=== PATIENT | male | born 1975 ===

== ENCOUNTER 2017-11-11 19:31 | Emergency (ER) | payer MEDICAID ==
[2017-11-11 20:01] VITALS: BP 107/68; PULSE 77; TEMP 98.2; O2SAT 100
--- NOTE | 2017-11-11 20:29 | C.PDOC ---
History Of Present Illness 42 yo male come in for evaluation of left elbow pain, swelling developed for past 2 months " after had fall injury". Pt sts, " today decided to check it out ". Otherwise, pt denies fever, chills, denies obvious deformity, weakness, sensory or vascular deficits to Left arm. Ambulate to Ed for evaluation, not in any apparent distress. Time Seen by Provider: 11/11/17 19:49 Chief Complaint (Nursing): Upper Extremity Problem/Injury History Per: Patient Onset/Duration Of Symptoms: Gradual Past Medical History Reviewed: Historical Data, Nursing Documentation, Vital Signs Vital Signs: Last Vital Signs Temp 98.2 F 11/11/17 19:57 Pulse 77 11/11/17 19:57 Resp 18 11/11/17 19:57 BP 107/68 11/11/17 19:57 Pulse Ox 100 11/11/17 20:31 - Medical History PMH: Anxiety, Asthma, Bronchitis, Depression Denies: Chronic Kidney Disease Family History: States: No Known Family Hx - Social History Hx Tobacco Use: Yes Hx Alcohol Use: No Hx Substance Use: No - Immunization History Hx Influenza Vaccination: Yes Review Of Systems Except As Marked, All Systems Reviewed And Found Negative. Constitutional: Negative for: Fever, Chills ENT: Negative for: Nose Discharge, Throat Pain Cardiovascular: Negative for: Chest Pain, Palpitations, Edema, Light Headedness Respiratory: Negative for: Shortness of Breath Musculoskeletal: Positive for: Other (Left elbow pain) Skin: Negative for: Bruising Neurological: Negative for: Weakness, Numbness, Altered Mental Status, Headache , Dizziness Physical Exam - Physical Exam Appears: Well, Non-toxic, No Acute Distress Skin: Normal Color, Warm, No Rash Head: Normacephalic Eye(s): bilateral: PERRL Extremity: Normal ROM (FAROM of Left elbow, no neurovascular deficits), Tenderness (left elbow lateral aspect), Capillary Refill (less than 2sec to left hand), No Deformity, Swelling (diffuse over left elbow more over lateral aspect) Neurological/Psych: Oriented x3, Normal Speech, Normal Motor, Normal Sensation, Normal Reflexes ED Course And Treatment O2 Sat by Pulse Oximetry: 100 Pulse Ox Interpretation: Normal - Other Rad Left elbow X-Ray: Interpreted by Me, Viewed By Me Interpretation: (+) old elbow fx. Progress Note: On re-eval, pt is afebrile, hemodynamicaly stable. LUE: mild edema, scant erythema and tenderness lateral aspect left elbow. No palpable deformity, FAROM, no neurovascular deficits. Imaging of left elbow review (+) old elbow fx. Pt advised and ref. to f/u with Ortho in 2-3 days for re-eval. eturn if any new changes. Disposition Counseled Patient/Family Regarding: Studies Performed, Diagnosis, Need For Followup - Disposition Referrals: [facility] at [facility] [Outside] Chris Roman MD [Staff Provider] - Disposition: HOME/ ROUTINE Disposition Time: 20:31 Condition: STABLE Additional Instructions: Jorge Luis wrap to Left elbow Light duty to left elbow Follow up with Orthopedist in 2-3 days for re-evaluation and further treatment as need return to Ed if any worsening or new changes. Instructions: Olecranon Bursitis, Elbow Fracture (DC) Forms: [facility] ([employer]) - Clinical Impression Clinical Impression: Bursitis of elbow, Elbow fracture
[2017-11-11 21:47] VITALS: RESP 20
--- NOTE | 2017-11-12 10:08 | RAD ---
Left elbow three views History: Pain. Comparison: None available. Findings: Large 1.5 centimeter ossific density seen anterior to the distal humerus suggestive for a displaced fracture of the coronoid. Fracture fragment measures approximately 1 5 centimeters with anterior distraction measuring approximately 1 centimeter. Adjacent to this, there is an additional ossific/radiopaque density measuring approximately 4 millimeters which may represent an additional fracture fragment. Productive change along the posterior cortex of the distal humerus. Elbow joint effusion. 6 millimeter radiopaque density seen adjacent to the medial humeral condyle. This is of uncertain clinical etiology and may represent a fracture fragment. Few punctate radiopaque densities seen projecting lateral to the lateral humeral condyle, nonspecific. Clinical correlation. Impression: Large 1.5 centimeter ossific density seen anterior to the distal humerus suggestive for a displaced fracture of the coronoid. Fracture fragment measures approximately 1 5 centimeters with anterior distraction measuring approximately 1 centimeter. Adjacent to this, there is an additional ossific/radiopaque density measuring approximately 4 millimeters which may represent an additional fracture fragment. Productive change along the posterior cortex of the distal humerus. Elbow joint effusion. 6 millimeter radiopaque density seen adjacent to the medial humeral condyle. This is of uncertain clinical etiology and may represent a fracture fragment. Few punctate radiopaque densities seen projecting lateral to the lateral humeral condyle, nonspecific. Clinical correlation. Correlation with bony CT and/or MRI may be helpful for further evaluation if clinically indicated.
== END 2017-11-11 21:47 | disposition home or self-care (01) ==
LOC: C.ER 19:31
DX: S42.402A Unspecified fracture of lower end of left humerus, initial encounter for closed fracture (principal); W19.XXXA Unspecified fall, initial encounter; M70.22 Olecranon bursitis, left elbow

== ENCOUNTER 2018-11-15 14:56 | Emergency (ER) | payer MEDICAID, OTHER ==
--- NOTE | 2018-11-15 15:18 | C.PDOC ---
History Of Present Illness 43 year old male with a history of anxiety and depression presents to the emergency department with complaints of hearing voices and feeling anxious. states h/o of anxiety depression. in er in [place]. Patient denies fever, suicidal/homicidal ideation and other complaints. <Jairo Armendariz - Last Filed: 11/15/18 18:26> History Per: Patient History/Exam Limitations: no limitations Onset/Duration Of Symptoms: Hrs Current Symptoms Are (Timing): Still Present Suicide/Self Injury Attempted (Context): None Modifying Factor(s): None Associated Symptoms: Anxiety. denies: Suicidal Thoughts, Suicidal Plan <Jairo Armendariz - Last Filed: 11/15/18 18:26> <Griselda Marina - Last Filed: 11/15/18 20:21> Time Seen by Provider: 11/15/18 15:02 Chief Complaint (Nursing): Psychiatric Evaluation Past Medical History Reviewed: Historical Data, Nursing Documentation, Vital Signs Vital Signs: Last Vital Signs Temp 97.6 F 11/15/18 15:05 Pulse 77 11/15/18 15:05 Resp 18 11/15/18 15:05 BP 112/72 11/15/18 15:05 Pulse Ox 100 11/15/18 15:05 Primary Care Provider: Kaitlynn Jefferson - Medical History PMH: Anxiety, Asthma, Bronchitis, Depression Denies: Chronic Kidney Disease Surgical History: No Surg Hx Family History: States: No Known Family Hx - Social History Hx Tobacco Use: Yes Hx Alcohol Use: No Hx Substance Use: No - Immunization History Hx Influenza Vaccination: Yes <Jairo Armendariz - Last Filed: 11/15/18 18:26> Vital Signs: Last Vital Signs Temp 98.4 F 11/15/18 18:56 Pulse 77 11/15/18 18:56 Resp 16 11/15/18 18:56 BP 128/85 11/15/18 18:56 Pulse Ox 97 11/15/18 18:56 <Griselda Marina - Last Filed: 11/15/18 20:21> Review Of Systems Except As Marked, All Systems Reviewed And Found Negative. Constitutional: Negative for: Fever Cardiovascular: Negative for: Chest Pain Respiratory: Negative for: Cough, Shortness of Breath Gastrointestinal: Negative for: Nausea, Vomiting, Abdominal Pain, Diarrhea Genitourinary: Negative for: Dysuria Musculoskeletal: Negative for: Neck Pain Neurological: Negative for: Weakness, Numbness Psych: Positive for: Anxiety. Negative for: Suicidal ideation <Jairo Armendariz - Last Filed: 11/15/18 18:26> Physical Exam - Physical Exam Appears: Non-toxic, No Acute Distress Skin: Normal Color, Warm, Dry Head: Atraumatic, Normacephalic Eye(s): bilateral: Normal Inspection, PERRL, EOMI Nose: Normal Oral Mucosa: Moist Neck: Normal, Supple Chest: Symmetrical, No Tenderness Cardiovascular: Rhythm Regular, No Murmur Respiratory: Normal Breath Sounds, No Rales, No Rhonchi, No Wheezing Gastrointestinal/Abdominal: Soft, No Tenderness, No Guarding, No Rebound Extremity: Normal ROM, No Tenderness, Other (healed surgical scar to left shoulder) Neurological/Psych: Oriented x3, Normal Speech, Normal Cognition <KpjannJairo layton - Last Filed: 11/15/18 18:26> ED Course And Treatment - Laboratory Results Result Diagrams: 11/15/18 16:08 11/15/18 16:08 O2 Sat by Pulse Oximetry: 100 (RA) Pulse Ox Interpretation: Normal <Jairo Armendariz - Last Filed: 11/15/18 18:26> - Laboratory Results Result Diagrams: 11/15/18 16:08 11/15/18 16:08 Lab Results: Total Bilirubin 0.4 mg/dL (0.2-1.3) 11/15/18 16:08 AST 26 U/L (17-59) 11/15/18 16:08 ALT 18 U/L (21-72) L 11/15/18 16:08 Alkaline Phosphatase 85 U/L (38-126) 11/15/18 16:08 Total Protein 7.8 g/dL (6.3-8.3) 11/15/18 16:08 Albumin 4.5 g/dL (3.5-5.0) 11/15/18 16:08 Globulin 3.2 gm/dL (2.2-3.9) 11/15/18 16:08 Albumin/Globulin Ratio 1.4 (1.0-2.1) 11/15/18 16:08 Urine Color Yellow (YELLOW) 11/15/18 17:16 Urine Clarity Hazy (Clear) 11/15/18 17:16 Urine pH 5.0 (5.0-8.0) 11/15/18 17:16 Ur Specific [place] 1.021 (1.003-1.030) 11/15/18 17:16 Urine Protein Negative mg/dL (NEGATIVE) 11/15/18 17:16 Urine Glucose (UA) Normal mg/dL (Normal) 11/15/18 17:16 Urine Ketones Negative mg/dL (NEGATIVE) 11/15/18 17:16 Urine Blood Negative (NEGATIVE) 11/15/18 17:16 Urine Nitrate Negative (NEGATIVE) 11/15/18 17:16 Urine Bilirubin Negative (NEGATIVE) 11/15/18 17:16 Urine Urobilinogen 4.0 mg/dL (0.2-1.0) 11/15/18 17:16 Ur Leukocyte Esterase Neg Enzo/uL (Negative) 11/15/18 17:16 Urine WBC (Auto) 3 /hpf (0-5) 11/15/18 17:16 Urine RBC (Auto) 4 /hpf (0-3) H 11/15/18 17:16 Ur Squamous Epith Cells 1 /hpf (0-5) 11/15/18 17:16 Calcium Oxalate Crystal Mod /hpf (<OCC) H 11/15/18 17:16 ECG: Interpreted By Me, Viewed By Me ECG Rhythm: Sinus Rhythm ECG Interpretation: No Acute Changes Rate From EC <Griselda Marina - Last Filed: 11/15/18 20:21> Medical Decision Making Medical Decision Making: anxiety/dperession/ ?chizophrenia Plan: Chemistry CBC Urinalysis pending transfer to [place]. cxr ekg pending. endorsed to dr marina pending transfer. <Jairo Armendariz - Last Filed: 11/15/18 18:26> Medical Decision Making: Normal chest XR, read by me. Patient is medically cleared. Dr. Hayes accepted patient. Will transfer to [facility]. <Griselda Marina - Last Filed: 11/15/18 20:21> Disposition <Jairo Armendariz - Last Filed: 11/15/18 18:26> - Disposition Disposition Time: 19:31 <Griselda Marina - Last Filed: 11/15/18 20:21> - Disposition Condition: STABLE Forms: [facility] (Telugu) - Clinical Impression Clinical Impression: Schizophrenia - Scribe Statement The provider has reviewed the documentation as recorded by the Scribe (Ori Huertas) Provider Attestation: All medical record entries made by the Scribe were at my direction and personally dictated by me. I have reviewed the chart and agree that the record accurately reflects my personal performance of the history, physical exam, medical decision making, and the department course for this patient. I have also personally directed, reviewed, and agree with the discharge instructions and disposition. <Jairo Armendariz - Last Filed: 11/15/18 18:26>
[2018-11-15 16:16] LABS: BASO # 0.1 K/uL (0.0-0.2); BASO % 0.9 % (0.0-2.0); EOS # 0.2 K/uL (0.0-0.7); EOS % 2.5 % (0.0-4.0); HEMOGLOBIN 11.3 g/dL (12.0-18.0); LYMPH # 1.6 K/uL (1.0-4.3); MEAN CELL VOLUME 73.1 fL (80.0-94.0); MEAN CORPUSCULAR HEMOGLOBIN 23.6 pg (27.0-31.0); MEAN CORPUSCULAR HGB CONC 32.4 g/dL (33.0-37.0); MEAN PLATELET VOLUME 7.7 fL (7.2-11.7); MONO # 0.5 K/uL (0.0-0.8); MONO % 6.6 % (0.0-10.0); NEUT # 5.3 K/uL (1.8-7.0); RBC 4.8 Mil/uL (4.40-5.90); RED CELL DISTRIBUTION WIDTH 16.6 % (11.5-14.5); WHITE BLOOD COUNT 7.7 K/uL (4.8-10.8)
[2018-11-15 16:30] LABS: ALB/GLOB RATIO 1.4 (1.0-2.1); ALBUMIN 4.5 g/dL (3.5-5.0); ALT/SGPT 18 U/L (21-72); AST/SGOT 26 U/L (17-59); BLOOD UREA NITROGEN 8 mg/dL (9-20); CALCIUM 9.6 mg/dl (8.6-10.4); GFR NON-AFRICAN AMERICAN > 60
[2018-11-15 16:33] LABS: SALICYLATE < 1.0 mg/dL 1
[2018-11-15 17:29] LABS: SQUAMOUS EPITHIAL 1 /hpf (0-5); URINE BILIRUBIN NEGATIVE (NEGATIVE); URINE BLOOD NEGATIVE (NEGATIVE); URINE CALCIUM OXALATE CRYSTALS MOD /hpf (<OCC); URINE CLARITY Hazy (Clear); URINE COLOR Yellow (YELLOW); URINE GLUCOSE (UA) NORMAL (Normal); URINE LEUKOCYTE ESTERASE NEG Leu/uL (Negative); URINE PROTEIN NEGATIVE (NEGATIVE)
[2018-11-15 17:40] LABS: BARBITURATES, UR NEGATIVE (NEGATIVE); BENZODIAZEPINES, UR POSITIVE (NEGATIVE); OPIATES, UR POSITIVE (NEGATIVE); PHENCYCLIDINE, UR NEGATIVE (NEGATIVE)
[2018-11-15 21:00] VITALS: BP 121/77; PULSE 69; RESP 18; TEMP 98.2; O2SAT 99
--- NOTE | 2018-11-16 07:12 | RAD ---
Date of service: 11/15/2018 HISTORY: PYSCH COMPARISON: None available. TECHNIQUE: Chest PA and lateral FINDINGS: LUNGS: No focal consolidation is seen. PLEURA: No pleural effusion is identified. CARDIOVASCULAR: Heart size is within normal limits. No atherosclerotic calcification present. OSSEOUS STRUCTURES: Multilevel superior wedge compression deformities of the mid and lower thoracic spine, greatest of a lower thoracic vertebral body, age indeterminate. Multiple screws noted in the region of the left glenoid and left humerus VISUALIZED UPPER ABDOMEN: Unremarkable. OTHER FINDINGS: None. IMPRESSION: No acute cardiopulmonary process seen. Age indeterminate compression deformities of the thoracic spine as above. Correlate clinically.
--- NOTE | 2018-11-16 20:38 | CARD ---
APPROVED REPORT Date of service: 11/15/2018 EKG Measurement Heart [id number] <Conclusion> Normal sinus rhythm Normal ECG
== END 2018-11-15 21:34 | disposition short-term general hospital (02) ==
LOC: C.ER 14:56
DX: F20.9 Schizophrenia, unspecified (principal)